=== PATIENT | female | born 1980 | race Caucasian/White ===

== ENCOUNTER 2020-07-23 08:02 | Day surgery (SDC) | payer BC ==
[2020-07-23] MEDS ORDERED: SCOPOLAMINE HYDROBROMIDE PATCH TD ONE (09:05)
[2020-07-23 09:10] LABS: Specific Gravity 1.025 (1.005-1.030)
[2020-07-23 09:13] LABS: Absolute Lymphocytes (CBC) 2.1 K/uL (0.7-4.9); Basophils % 0.6 % (0-1.3); Hematocrit 41.6 % (36.0-45.0); Lymphocytes % 21.4 % (15.3-44.8); MPV 7.6 fL (7.6-11.3); RBC Red Blood Cell Count 4.68 M/uL (3.86-4.86)
[2020-07-23] MEDS ORDERED: Ringers Lactate 1,000 ML IV ONE ×2 (09:19→12:30)
[2020-07-23] MEDS ORDERED: CEFOXITIN/SWI 1gm 1 GM/10 ML SYR ONE (09:20)
[2020-07-23 09:24] LABS: Albumin 3.8 g/dL (3.4-5.0); Bilirubin Direct 0.1 mg/dL (0-0.2); Bilirubin Total 0.6 mg/dL (0.2-1.0); Potassium 4.2 mmol/L (3.5-5.1); Protein, Total 7.3 g/dL (6.4-8.2)
--- NOTE | 2020-07-23 09:42 | RAD REPORT ---
EXAM DESCRIPTION: Jh Vance (2 Views)07/23/2020 8:36 am CLINICAL HISTORY: Abdominal pain/preop for cholecystectomy COMPARISON: None FINDINGS: The lungs appear clear of acute infiltrate. The heart is normal size IMPRESSION: No acute abnormalities displayed
[2020-07-23] MEDS ORDERED: propofoL 200 MG/20 ML VIAL IV ONE (10:23)
[2020-07-23] MEDS ORDERED: LIDOCAINE 2% MPF 5 ML VIAL ONE (10:23)
[2020-07-23] MEDS ORDERED: KETOROLAC 30 MG/ML INJ ONE (10:23)
[2020-07-23] MEDS ORDERED: FENTANYL CITR 100 MCG/2 ML ONE ×2 (10:23→11:40)
[2020-07-23] MEDS ORDERED: dexAMETHasone 10 MG/ML VIAL ONE (10:23)
[2020-07-23] MEDS ORDERED: ROCURONIUM 50 MG/5 ML VIAL IV ONE (10:23)
[2020-07-23] MEDS ORDERED: ONDANSETRON 4 MG/2 ML VIAL ONE ×2 (10:24→12:24)
[2020-07-23] MEDS ORDERED: MIDAZOLAM HCL 2 MG/2 ML INJ ONE (10:28)
[2020-07-23] MEDS ORDERED: ESMOLOL HCL 10 ML IV ONE (11:51)
[2020-07-23] MEDS ORDERED: PROMETHAZINE INJ 25 MG/ML AMP ONE (12:24)
[2020-07-23 13:05] VITALS: BP 107/59; TEMP 96.4; O2SAT 100
[2020-07-23] MEDS ORDERED: HYDROCODONE/APAP 7.5/325 MG TAB ONE (13:06)
--- NOTE | 2020-07-23 18:22 | OP ---
Date of Procedure: 07/23/2020 Surgeon: Flynn Glover MD Human Resources Assistant Manager: SULTANA Pa. Preoperative Diagnosis: Chronic cholecystitis and cholelithiasis. Postoperative Diagnosis: Chronic cholecystitis and cholelithiasis. Procedure: Laparoscopic cholecystectomy. Estimated Blood Loss: Minimal. Specimen: Gallbladder. Finding: As above. Anesthesia: General. Complication: None. Disposition: The patient tolerated the procedure in stable condition and taken to Recovery in good g eneral condition. Procedure In Detail: The patient was brought to the OR and placed in supine position. General anest hesia begun. The patient was prepped and draped in usual sterile fashion. Marcaine 0.5% was infiltr ated locally. A 15-blade was used to make a 1 cm infraumbilical midline incision. Subcutaneous tiss ue divided. Fascia was identified and divided. A #1 Vicryl stay suture was placed. Peritoneal cavi ty was entered with blunt dissection. A 12-mm trocar was placed into the peritoneal cavity under dir ect vision. Pneumoperitoneum was established. Then, three 5 trocars were placed under direct vision , 1 in the epigastrium just to the right of midline and 2 in the right subcostal region. Laparoscopy revealed chronic inflammation of the gallbladder. Fundus retracted superiorly. Infundibulum identi fied and retracted inferolaterally. Cystic duct and cystic artery were clearly identified with blunt dissection. Clips were placed. Both structures were divided. Cautery was used to remove the gallb ladder from the liver bed. Bleeding on the liver bed was controlled with cautery. Gallbladder was r etrieved through the umbilicus via an EndoCatch bag. The right upper quadrant was examined and no ev idence of bleeding or bile leakage appreciated. Subsequently, all trocars were removed under direct vision. Stay sutures were tied to each other to approximate the fascial defect. Subcutaneous wounds were irrigated. Bleeding was controlled with cautery. A 3-0 chromic was used to approximate the owusu bcutaneous tissue and close the skin. Sterile dressing was applied. The patient was awakened and ta cheryl to Recovery in good general condition. Discharge Note: The patient will go to Day Surgery and home when stable. Disposition: Home. Condition: Stable. Discharge Instructions: Resume home medications and diet. Activity as tolerated. No heavy lifting. Remove outer dressing in 2 days. Shower. Keep wound clean and dry. Follow up in my office in a renay palafoxk. Call for appointment. Tylenol No. 3 one tablet p.o. q.4 p.r.n. pain. Keep Steri-Strips on at all times. Incentive spirometry as ordered. /MODL Voice ID: [id number] Report ID: [id number]
--- NOTE | 2020-07-25 05:43 | EKG ---
Test Date: 2020-07-23 Test Time: 09:11:11 Monument Carver: TG MEASUREMENT RESULTS: Intervals: Rate: 89 MO: 102 QRSD: 68 QT: 364 QTc: 442 Breda: P: 20 MO: 102 QRS: 60 T: 46 INTERPRETIVE STATEMENTS: Sinus rhythm with short MO Low voltage QRS Borderline ECG No previous ECG available for comparison Electronically Signed On 07-25-20 05:36:22 ENGINE MANAGER by Darrius Chapman
== END 2020-07-23 13:33 | disposition home or self-care (01) ==
LOC: OR 08:02
PROVIDERS: ATTEND Surgery
PROC: 0FT44ZZ Resection of Gallbladder, Percutaneous Endoscopic Approach (ICD-10-PCS; principal; 2020-07-23 10:15)
DX: K80.10 Calculus of gallbladder with chronic cholecystitis without obstruction (principal); Z20.822 Contact with and (suspected) exposure to COVID-19
CPT/HCPCS: 36415; 71046; 80048; 80076; 81025; 82150; 85025; 88304; 93005; J1100; J2250; J2405; J2550; J2704; J3010; J7120; U0002

== ENCOUNTER 2020-07-25 16:50 | Emergency (ER) | payer BC ==
--- OUTSIDE RECORDS SUMMARY | 2020-07-25 16:52 | XMS REPORT | Continuity of Care Document ---
:1980 Author Organization [facility] t Address [address] [place] [address] Care Team Providers Name Role Phone Radiology Attending Clinician Unavailable Doctor Unassigned, Name Attending Clinician Unavailable Nurse, [facility] Attending Clinician Unavailable Lab, Fam Pob I Attending Clinician Unavailable Sophia CHAIREZ Attending Clinician Problems This patient has no known problems. Allergies, Adverse Reactions, Alerts This patient has no known allergies or adverse reactions. Medications This patient has no known medications. Procedures This patient has no known procedures. Encounters Start End Encounter Admission Attending Care Care Encounter Source Date/Time Date/Time Type Type Clinicians Facility Department ID 2020-07-12 2020-07-12 [facility] Radiology [facility] [id number] 15:00:00 23:59:00 Encounter [place] [id number] [place] [id number] [place] [id number] 2020-07-12 2020-07-12 Orders Doctor JULIET [id number] 00:00:00 00:00:00 Only UnassignedJUDITH [id number] [place] [facility] [id number] [id number] 2020-06-28 2020-06-28 Nurse Nurse, [facility] [id number] 08:21:55 09:01:41 Visit [facility] [id number] Health [place] [id number] Professio [phone] [facility] [address] 2020-05-06 2020-05-06 Laboratory Lab, [facility] [id number] 18:14:49 18:34:49 Only Fam Pob I Health [id number] [place] [id number] Professio [id number] [place] 044 Office [address] One 2020-04-23 2020-04-23 [facility] [id number] 12:43:12 23:59:00 Encounter Therese Quig[place] [id number] [place] [id number] [place] [id number] 2020-04-23 2020-04-23 Orders Doctor JULIET [id number] 00:00:00 00:00:00 Only Unassigned, JUDITH [id number] [place] [address]686 [id number] 2020-03-27 2020-03-27 Office [facility] [id number] 09:17:47 10:14:08 Visit Therese Quig[place] [id number] [place] [id number] Professio [phone] [facility] [address] 2020-03-27 2020-03-27 Orders Doctor JULIET [id number] 00:00:00 00:00:00 Only Unassigned, JUDITH [id number] [place] [address]686 [id number] [id number] Results This patient has no known results.
[2020-07-25] MEDS ORDERED: MEPERIDINE HCL 25 MG/ML SYR ONE ×2 (17:49→20:15)
[2020-07-25] MEDS ORDERED: ONDANSETRON 4 MG/2 ML VIAL ONE ×2 (17:49→20:14)
[2020-07-25] MEDS ORDERED: NA CHLORIDE 0.9% 1,000 ML ONE (17:49)
[2020-07-25 18:05] LABS: Absolute Lymphocytes (CBC) 1.7 K/uL (0.7-4.9); Basophils % 0.3 % (0-1.3); Hematocrit 43.3 % (36.0-45.0); Lymphocytes % 10.9 % (15.3-44.8); MPV 7.9 fL (7.6-11.3); RBC Red Blood Cell Count 4.85 M/uL (3.86-4.86)
[2020-07-25 18:15] LABS: Albumin 3.9 g/dL (3.4-5.0); Bilirubin Direct 0.3 mg/dL (0-0.2); Bilirubin Total 1.3 mg/dL (0.2-1.0); Potassium 3.7 mmol/L (3.5-5.1); Protein, Total 7.8 g/dL (6.4-8.2)
--- NOTE | 2020-07-25 18:33 | RAD REPORT ---
EXAM DESCRIPTION: US - Abdomen Exam Limited - 07/25/2020 6:15 pm CLINICAL HISTORY: Abdominal pain. COMPARISON: None. FINDINGS: Cholecystectomy. Common bile duct measures 7 millimeters. Fluid is not seen within the gallbladder fossa The biliary tree is normal caliber. IMPRESSION: Cholecystectomy Mild prominence of the common bile duct may be physiologic in this patient status post cholecystectom y
--- NOTE | 2020-07-25 19:26 | RAD REPORT ---
EXAM DESCRIPTION: MRICholangiogram07/25/2020 7:15 pm CLINICAL HISTORY: Abdominal pain COMPARISON: July 25, 2020 ultrasound TECHNIQUE: Magnetic resonance cholangiogram was performed.3D MIP reconstruction performed FINDINGS: Cholecystectomy. Fluid collection within the gallbladder fossa is not present. There is no fluid surrounding the liver . The biliary tree is normal caliber without a filling defect. Pancreatic duct is normal caliber IMPRESSION: Unremarkable exam
--- NOTE | 2020-07-25 19:40 | ER ---
Nurse's Notes [facility] Name: Candida Viramontes Age: 40 yrs Sex: Female : 1980 Arrival Date: 07/25/2020 Time: 16:[address] Private MD: Mingo Alexis T Diagnosis: Upper abdominal pain, unspecified-post lap cholecystectomy Presentation: 07/25 16:58 Chief complaint: Patient states: on Wednesday Dr. Glover took my gallbladder out, i called tw2 today because out of the blue i started having like a gallbladder attack pain like a ripping pain and they told me to come here because it was atypical pain,nauseous. Coronavirus screen: At this time, the client does not indicate any symptoms associated with coronavirus-19. Ebola Screen: Patient denies travel to an Ebola-affected area in the 21 days before illness onset. Initial Sepsis Screen: Does the patient meet any 2 criteria? HR > 90 bpm. Does the patient have a suspected source of infection? No. Patient's initial sepsis screen is negative. Risk Assessment: Do you want to hurt yourself or someone else? Patient reports no desire to harm self or others. Onset of symptoms was July 25, 2020. 16:58 Method Of Arrival: Ambulatory tw2 16:58 Acuity: BENOIT 2 tw2 Triage Assessment: 17:02 General: Appears uncomfortable, Behavior is cooperative, appropriate for age. Pain: tw2 Complains of pain in right upper quadrant and right lower quadrant Pain radiates to back. GI: Reports nausea. Historical: - Allergies: 17:02 No Known Allergies; tw2 - Home Meds: 17:02 Xanax Oral [Active]; Imitrex 50 mg Oral tab 1 tab [Active]; acetaminophen-codeine tw2 300-15 mg Oral tab 1 tab every 4 hours [Active]; Zofran (as hydrochloride) 4 mg Oral tab 2 tabs [Active]; - PMHx: 17:02 Migraines; tw2 - PSHx: 17:02 Cholecystectomy; Appendectomy; Thyroidectomy; breast augmentation; tw2 - Immunization history:: Adult Immunizations. - Social history:: Smoking status: Reported history of juuling and/or vaping. Screenin:00 Abuse screen: Denies threats or abuse. Denies injuries from another. Nutritional bp screening: No deficits noted. Tuberculosis screening: No symptoms or risk factors identified. Fall Risk None identified. Assessment: 17:00 General: SEE TRIAGE NOTE. bp 17:57 Reassessment: No changes from previously documented assessment. Patient and/or family bp updated on plan of care and expected duration. Pain level reassessed. Patient is alert, oriented x 3, equal unlabored respirations, skin warm/dry/pink. B/S U/S COMPLETED, INITIAL IMPRESSION UNREMARKABLE. Vital Signs: 16:58 BP 107 / 75; Pulse 121; Resp 17; Temp 97.9(TE); Pulse Ox 100% on R/A; Weight 73.94 kg tw2 (R); Height 5 ft. 3 in. (160.02 cm); Pain 10/10; 17:00 BP 121 / 101; Pulse 121; Resp 19; Pulse Ox 98% ; bp 17:59 BP 121 / 83; Pulse 110; Resp 16; Pulse Ox 98% ; bp 16:58 Body Mass Index 28.87 (73.94 kg, 160.02 cm) tw2 ED Course: 16:51 Patient arrived in ED. am2 16:51 Mingo Alexis MD is Private Physician. am2 17:00 Triage completed. tw2 17:00 Patient has correct armband on for positive identification. Bed in low position. Call bp light in reach. Side rails up X2. 17:03 Arm band placed on. tw2 17:06 Junior Bean, NADYA is Primary Nurse. bp 17:17 Manju Madrigal FNP-C is PHCP. kb 17:17 Og Gloria MD is Attending Physician. kb 17:30 Inserted saline lock: 20 gauge in right forearm, using aseptic technique. Blood bp collected. 18:15 US Abdomen Limited In Process Unspecified. EDMS 19:14 Cholangiogram In Process Unspecified. EDMS 19:39 Flynn Glover MD is Referral Physician. kb 20:19 No provider procedures requiring assistance completed. IV discontinued, intact, em bleeding controlled, No redness/swelling at site. Pressure dressing applied. Administered Medications: 17:30 Drug: NS 0.9% 1000 ml Route: IV; Rate: 1000 ml; Site: right forearm; bp 19:51 Follow up: IV Status: Completed infusion; IV Intake: 1000ml em 17:30 Drug: Zofran (Ondansetron) 4 mg Route: IVP; Site: right forearm; bp 19:51 Follow up: Response: No adverse reaction em 17:30 Drug: Demerol 25 mg Route: IVP; Site: right forearm; bp 19:51 Follow up: Response: No adverse reaction em 20:14 Drug: Zofran (Ondansetron) 4 mg Route: IVP; Site: right forearm; em 20:15 Drug: GI Cocktail without - (Maalox Suspension 30 ml, Lidocaine Liquid 2 % 15 em ml) Route: PO; 20:19 Drug: Demerol 25 mg Route: IVP; Site: right forearm; em Intake: 19:51 IV: 1000ml; Total: 1000ml. em Outcome: 19:39 Discharge ordered by . kb 20:19 Discharged to home ambulatory. em 20:19 Condition: stable 20:19 Discharge instructions given to patient, Instructed on discharge instructions, follow up and referral plans. Demonstrated understanding of instructions, follow-up care. 20:19 Patient left the ED. em Signatures: Dispatcher [employer] Manju Hinson, SERVICE UNIT OPERATOR [employer]LL-C SERVICE UNIT OPERATOR [employer]IL WELL-CkNicolás Jeffeyr, RN RN Guillermina Rascon RN RN 2 Mery Ferreira 2 Junior Bean, RN RN bp
--- NOTE | 2020-07-25 19:40 | EDPHYS ---
Physician Documentation [facility] Name: Candida Viramontes Age: 40 yrs Sex: Female : 1980 Arrival Date: 07/25/2020 Time: 16:[address] Private MD: Mingo Alexis T ED Physician Og Gloria HPI: 07/25 19:26 This 40 yrs old Female presents to ER via Ambulatory with complaints of Post kb Surgical Pain - gallbladder sx. 19:26 The patient presents with abdominal pain in the right upper quadrant. Onset: The kb symptoms/episode began/occurred today. The symptoms do not radiate. Associated signs and symptoms: Pertinent positives: nausea, Pertinent negatives: fever. The symptoms are described as constant. Modifying factors: The symptoms are alleviated by nothing, the symptoms are aggravated by pressure. Severity of pain: At its worst the pain was severe in the emergency department the pain is unchanged. The patient has experienced similar episodes in the past, a few times. The patient has been recently seen by a physician:. Pt had cholecystectomy 2 days ago, started having severe RUQ pain after eating lunch at 1200. States it feels like a gallbladder attack except worse. . Historical: - Allergies: 17:02 No Known Allergies; tw2 - Home Meds: 17:02 Xanax Oral [Active]; Imitrex 50 mg Oral tab 1 tab [Active]; acetaminophen-codeine tw2 300-15 mg Oral tab 1 tab every 4 hours [Active]; Zofran (as hydrochloride) 4 mg Oral tab 2 tabs [Active]; - PMHx: 17:02 Migraines; tw2 - PSHx: 17:02 Cholecystectomy; Appendectomy; Thyroidectomy; breast augmentation; tw2 - Immunization history:: Adult Immunizations. - Social history:: Smoking status: Reported history of juuling and/or vaping. ROS: 19:21 Constitutional: Negative for fever, chills, and weight loss, Cardiovascular: Negative kb for chest pain, palpitations, and edema, Respiratory: Negative for shortness of breath, cough, wheezing, and pleuritic chest pain, Back: Negative for injury and pain, MS/Extremity: Negative for injury and deformity, Skin: Negative for injury, rash, and discoloration, Neuro: Negative for headache, weakness, numbness, tingling, and seizure. 19:21 Abdomen/GI: Positive for abdominal pain, nausea, Negative for vomiting, diarrhea. Exam: 19:23 Head/Face: Normocephalic, atraumatic. Cardiovascular: Regular rate and rhythm with a kb normal S1 and S2. No gallops, murmurs, or rubs. Normal PMI, no JVD. No pulse deficits. Respiratory: Lungs have equal breath sounds bilaterally, clear to auscultation and percussion. No rales, rhonchi or wheezes noted. No increased work of breathing, no retractions or nasal flaring. Skin: Warm, dry with normal turgor. Normal color with no rashes, no lesions, and no evidence of cellulitis. MS/ Extremity: Pulses equal, no cyanosis. Neurovascular intact. Full, normal range of motion. 19:23 Abdomen/GI: Inspection: abdomen appears normal, Bowel sounds: normal, Palpation: soft, in all quadrants, severe abdominal tenderness, in the right upper quadrant. 19:25 Constitutional: The patient appears alert, awake, in obvious pain. kb 19:26 Neuro: Orientation: is normal, Mentation: is normal, Motor: is normal, Sensation: is kb normal, Gait: is steady. Vital Signs: 16:58 BP 107 / 75; Pulse 121; Resp 17; Temp 97.9(TE); Pulse Ox 100% on R/A; Weight 73.94 kg tw2 (R); Height 5 ft. 3 in. (160.02 cm); Pain 10/10; 17:00 BP 121 / 101; Pulse 121; Resp 19; Pulse Ox 98% ; bp 17:59 BP 121 / 83; Pulse 110; Resp 16; Pulse Ox 98% ; bp 16:58 Body Mass Index 28.87 (73.94 kg, 160.02 cm) tw2 MDM: 17:17 Patient medically screened. kb 19:22 Data reviewed: vital signs, nurses notes. Data interpreted: Pulse oximetry: on room air kb is 98 %. Interpretation: normal. 19:33 Counseling: I had a detailed discussion with the patient and/or guardian regarding: the kb historical points, exam findings, and any diagnostic results supporting the discharge/admit diagnosis, lab results, radiology results, the need for outpatient follow up, a general surgeon, to return to the emergency department if symptoms worsen or persist or if there are any questions or concerns that arise at home. Physician consultation: Flynn Glover MD was contacted at 19:34, regarding consult, patient's condition, and will see patient in office. 07/25 17:18 Order name: Basic Metabolic Panel; Complete Time: 18:22 kb 07/25 17:18 Order name: CBC with Diff; Complete Time: 18:08 kb 07/25 17:18 Order name: Hepatic Function; Complete Time: 18:22 kb 07/25 17:18 Order name: Lipase; Complete Time: 18:22 kb 07/25 17:18 Order name: US Abdomen Limited; Complete Time: 18:38 kb 07/25 17:22 Order name: Cholangiogram; Complete Time: 19:28 EDMS 07/25 17:18 Order name: IV Saline Lock; Complete Time: 17:48 kb 07/25 17:18 Order name: Labs collected and sent; Complete Time: 17:48 kb Administered Medications: 17:30 Drug: NS 0.9% 1000 ml Route: IV; Rate: 1000 ml; Site: right forearm; bp 19:51 Follow up: IV Status: Completed infusion; IV Intake: 1000ml em 17:30 Drug: Zofran (Ondansetron) 4 mg Route: IVP; Site: right forearm; bp 19:51 Follow up: Response: No adverse reaction em 17:30 Drug: Demerol 25 mg Route: IVP; Site: right forearm; bp 19:51 Follow up: Response: No adverse reaction em 20:14 Drug: Zofran (Ondansetron) 4 mg Route: IVP; Site: right forearm; em 20:15 Drug: GI Cocktail without - (Maalox Suspension 30 ml, Lidocaine Liquid 2 % 15 em ml) Route: PO; 20:19 Drug: Demerol 25 mg Route: IVP; Site: right forearm; em Disposition: 07/25/20 19:39 Discharged to Home. Impression: Upper abdominal pain, unspecified - post lap cholecystectomy. - Condition is Stable. - Discharge Instructions: Abdominal Pain, Adult, [id number]. - Medication Reconciliation Form, Thank You Letter, Antibiotic Education, Prescription Opioid Use form. - Follow up: Emergency Department; When: As needed; Reason: Worsening of condition. Follow up: Flynn Glover MD; When: 2 - 3 days; Reason: Recheck today's complaints, Continuance of care, Re-evaluation by your physician. Addendum: 07/29/2020 05:55 Co-signature as Attending Physician, Og Gloria MD I agree with the assessment and k dr plan of care. Signatures: Dispatcher [employer] EDVT RohanManju, ONLINE COMMUNICATIONS SPECIALIST-C ONLINE COMMUNICATIONS SPECIALIST-Ckb Og Gloria MD MD [facility] Nicolás Muhammad, RN RN em Guillermina Roberts RN RN tw2 Junior Bean RN RN bp Corrections: (The following items were deleted from the chart) 07/25 19:25 19:21 Abdomen/GI: Positive for abdominal pain, nausea, kb kb : 19:23 Constitutional: This is a well developed, well nourished patient who is awake, kb alert, and in no acute distress. Head/Face: Normocephalic, atraumatic. Cardiovascular: Regular rate and rhythm with a normal S1 and S2. No gallops, murmurs, or rubs. Normal PMI, no JVD. No pulse deficits. Respiratory: Lungs have equal breath sounds bilaterally, clear to auscultation and percussion. No rales, rhonchi or wheezes noted. No increased work of breathing, no retractions or nasal flaring. Skin: Warm, dry with normal turgor. Normal color with no rashes, no lesions, and no evidence of cellulitis. MS/ Extremity: Pulses equal, no cyanosis. Neurovascular intact. Full, normal range of motion. kb 19:25 19:23 Abdomen/GI: Inspection: abdomen appears normal, Bowel sounds: normal, Palpation: kb soft, in all quadrants, mild abdominal tenderness, in all quadrants, kb 20:19 19:39 07/25/2020 19:39 Discharged to Home. Impression: Upper abdominal pain, em unspecified - post lap cholecystectomy. Condition is Stable. Forms are Medication Reconciliation Form, Thank You Letter, Antibiotic Education, Prescription Opioid Use. Follow up: Emergency Department; When: As needed; Reason: Worsening of condition. Follow up: Dr. Flynn Glover; When: 2 - 3 days; Reason: Recheck today's complaints, Continuance of care, Re-evaluation by your physician. kb
[2020-07-25] MEDS ORDERED: MAGNES/ALUMIN/SIMET 30ML UCUP ONE (20:14)
[2020-07-25] MEDS ORDERED: LIDOCAINE VISCOUS 2% SOLN 15 ML UDC ONE (20:15)
[2020-07-25 20:51] VITALS: TEMP 97.9
[2020-07-25 20:53] VITALS: BP 121/83; O2SAT 98
== END 2020-07-25 20:19 | disposition home or self-care (01) ==
LOC: ER 16:50
DX: R10.11 Right upper quadrant pain (principal); Z90.49 Acquired absence of other specified parts of digestive tract; Z98.82 Breast implant status
CPT/HCPCS: 96361; 85025; 80048; 36415; 80076; 83690; 74181; 76705; 96375; 96374; 99284; J2175 ×2; J7030; J2405 ×2